=== PATIENT | female | born 1965 | race Caucasian/White ===

== ENCOUNTER → 2017-01-09 | Outpatient (CLI) | payer OTHER ==
[~2017-01-09] MED LIST: BCPILLS PO; CALC600T9 PO; CETI10TA10 PO; CITA40TA4 PO; COLE1TAB5 PO; DICY20TA10 PO; DIPHENOXYLATE-ATROP SL; DOCU-94 PO; HYDR2TAB48 PO; HYOS0.1255 PO; LPT/20 PO; METF500T5 PO; MULT-506 PO; OMEG10007 PO; OXYC-57 PO; PNT500 PO; SENN1TAB77 PO; URSO300C4 PO; VITACAP37 PO
[2017-01-09 13:51] LABS: ESTIMATED AVERAGE GLUCOSE 140 mg/dl; HA1C FLAG Normal (Normal)
[2017-01-09 14:41] LABS: ALT/SGPT 55 U/L (12-78); AST/SGOT 96 U/L (15-37); BLOOD UREA NITROGEN 11 mg/dl (7-18); BUN/CREATININE RATIO 14.2 (10-20); CALCIUM 9.1 mg/dl (8.5-10.1); CARBON DIOXIDE 26 mmol/L (21-32); CHLORIDE 106 mmol/L (98-107); CREATININE 0.76 mg/dl (0.60-1.20); GLUCOSE 94 mg/dl (70-99); POTASSIUM 3.7 mmol/L (3.5-5.1); SODIUM 140 mmol/L (136-145); TRIGLYCERIDES 294 mg/dl (0-150); VERY LOW DENSITY LIPOPROT CALC 59 mg/dl
[2017-01-09 14:43] LABS: ALB/GLOB RATIO 0.9 (0.9-2); ALKALINE PHOSPHATASE 80 U/L (45-117); CHOLESTEROL 280 mg/dl (0-200); CHOLESTEROL/HDL RATIO 6.4; HDL CHOLESTEROL 44 mg/dl; LDL CHOLESTEROL CALCULATED 177 mg/dl
== END | disposition home or self-care (01) ==
LOC: C.LAB 12:29
PROVIDERS: ATTEND Internal Medicine
DX: K76.0 Fatty (change of) liver, not elsewhere classified (principal)

== ENCOUNTER → 2017-01-26 | Outpatient (CLI) | payer OTHER ==
[2017-01-26 17:37] LABS: HEMATOCRIT 40.1 % (37-47)
== END | disposition home or self-care (01) ==
LOC: C.LAB1850 16:27
PROVIDERS: ATTEND Registered Nurse
DX: K62.5 Hemorrhage of anus and rectum (principal); K64.8 Other hemorrhoids

== ENCOUNTER → 2017-04-12 | Outpatient (CLI) | payer OTHER ==
--- NOTE | 2017-04-12 07:55 | DIAGNOSTIC IMAGING REPORT ---
ABDOMINAL ULTRASOUND, RIGHT UPPER QUADRANT HISTORY: Follow-up PANCREATIC LESION. COMPARISON: Abdominal ultrasound 04/10/2016. FINDINGS: Pancreas: An 8 mm cystic lesion within the pancreatic neck is not significant changed. Liver: Hepatomegaly demonstrating fatty change. Gallbladder: The gallbladder is surgically absent. CBD: 7 mm, unchanged Right kidney: No hydronephrosis. IMPRESSION: No significant change compared to the prior study. Stable 8 mm cystic lesion within the pancreatic neck is again noted. Electronically signed by: Dakotah Malagon M.D. 04/12/2017 7:54 AM Dictated Date/Time: 04/12/2017 7:52 AM
== END | disposition home or self-care (01) ==
LOC: C.ULTR 06:38
PROVIDERS: ATTEND Internal Medicine
DX: K86.9 Disease of pancreas, unspecified (principal)

== ENCOUNTER → 2017-06-05 | Outpatient (CLI) | payer OTHER ==
[2017-06-05 12:37] LABS: ALT/SGPT 53 U/L (12-78); AST/SGOT 119 U/L (15-37); BLOOD UREA NITROGEN 11 mg/dl (7-18); BUN/CREATININE RATIO 15.6 (10-20); CALCIUM 8.8 mg/dl (8.5-10.1); CARBON DIOXIDE 24 mmol/L (21-32); CHLORIDE 106 mmol/L (98-107); CHOLESTEROL 194 mg/dl (0-200); GLUCOSE 113 mg/dl (70-99); POTASSIUM 4.1 mmol/L (3.5-5.1); SODIUM 140 mmol/L (136-145); TRIGLYCERIDES 234 mg/dl (0-150); VERY LOW DENSITY LIPOPROT CALC 47 mg/dl
[2017-06-05 12:39] LABS: ALB/GLOB RATIO 0.9 (0.9-2); ALKALINE PHOSPHATASE 106 U/L (45-117); CHOLESTEROL/HDL RATIO 4.7; HDL CHOLESTEROL 41 mg/dl; LDL CHOLESTEROL CALCULATED 106 mg/dl
[2017-06-05 12:44] LABS: ESTIMATED AVERAGE GLUCOSE 157 mg/dl; HA1C FLAG Normal (Normal)
== END | disposition home or self-care (01) ==
LOC: C.LAB 10:58
PROVIDERS: ATTEND Internal Medicine
DX: E78.5 Hyperlipidemia, unspecified (principal); G47.33 Obstructive sleep apnea (adult) (pediatric); E11.9 Type 2 diabetes mellitus without complications; R79.89 Other specified abnormal findings of blood chemistry; K76.0 Fatty (change of) liver, not elsewhere classified; I10 Essential (primary) hypertension

== ENCOUNTER 2017-06-12 19:11 | Emergency (ER) | payer OTHER ==
[~2017-06-12] VITALS: Ht 154.9 cm; Wt 103.6 kg
[~2017-06-12 19:11] MED LIST changes: -DOCU-94 PO; -LPT/20 PO; -METF500T5 PO; -OXYC-57 PO; -SENN1TAB77 PO
[2017-06-12 19:26] VITALS: TEMP 37.6; Ht 154.9 cm; Wt 103.6 kg
[2017-06-12] MEDS ORDERED: SODIUM CHLORIDE 0.9% 1000ML 1,000 ML IV STA (20:10)
[2017-06-12] MEDS ORDERED: HYDROmorphone INJ 1 MG/ML SYR IV STA (20:10)
[2017-06-12] MEDS ORDERED: METOCLOPRAMIDE HCL INJ 5 MG/ML 2 ML VIAL IV STA (20:10)
[2017-06-12] MEDS ORDERED: ANUSOL SUPP 1 EA PR STA (20:13)
[2017-06-12] MEDS ORDERED: HYDROCORTISONE HC 2.5% CRM 30GM TUBE EXT ONE (20:15)
--- NOTE | 2017-06-12 20:23 | EMERGENCY ROOM VISIT NOTE ---
History Report prepared by Rod: John Robison Under the Supervision of: Dr. Jose L Perez M.D. First contact with patient: 19:59 Chief Complaint: OTHER COMPLAINT Stated Complaint: ANAL,VAGINAL BLEEDING,FEVER History of Present Illness The patient is a 51 year old female who presents to the Emergency Room with complaints of rectal pain that began this afternoon 5 hours ago. She rates her pain a 10/10 in severity. The patient has a history of bleeding internal hemorrhoids. This afternoon, she was at the [facility] seeing the colorectal surgeon to receive a banding procedure. She states that the procedure went well and she was discharged well. After she got home, she began having increased rectal, vaginal, and suprapubic tenderness. She is having urinary urgency without much production. She states that she has a fever of 100 F, but her temperature in triage was 99F. Source of History: patient Onset: this afternoon Symptom Intensity: 10/10 Quality: sharp Timing: constant Associated Symptoms: + abdominal pain (suprapubic), + urinary symptoms ( Urgency without much production), No fevers Note: She is having vaginal pain as well. Review of Systems See HPI for pertinent positives & negatives. A total of 10 systems reviewed and were otherwise negative. Past Medical & Surgical Medical Problems: (1) ACUTE PANCREATITIS (2) Cholecystectomy (3) Endoscopic retrograde cholangiopancreatography (4) IRRITABLE BOWEL SYNDROME Family History Cancer Diabetes mellitus Gallbladder disease Heart disease Hypertension Kidney stones Social History Smoking Status: Never Smoker Alcohol Use: none Drug Use: none Marital Status: Housing Status: lives with family Occupation Status: employed Current/Historical Medications Scheduled Atorvastatin (Atorvastatin Calcium), 20 MG PO DAILY Control Pills ( Control Pills), 1 TAB PO QPM Calcium Carbonate-Vitamin D (Calcium + D), 1 TAB PO BID Cetirizine Hcl (Zyrtec), 10 MG PO QAM Citalopram (Citalopram Hydrobromide), 80 MG PO QAM Colestipol Hcl (Colestipol Hcl), 2 TAB PO QAM Dicyclomine Hcl (Dicyclomine Hcl), 20 MG PO QID Docusate Sodium (Colace), 1 CAP PO BID Metformin Hcl Er (Glucophage Er), 1,000 MG PO QPM Multivitamin (Multivitamin), 1 TABLET PO QAM Sennosides (Senokot), 8.6 MG PO HS Vitamin E (E-400), 1 CAP PO QAM Scheduled PRN Hydromorphone Hcl (Dilaudid), 1 TAB PO DAILY PRN for ABDOMINAL PAIN Hyoscyamine Sulfate (Levsin), 0.125 MG PO DAILY PRN for ABDOMINAL PAIN Oxycodone/Acetaminophen 5MG/325MG (Percocet 5MG/325MG), 1-2 TAB PO Q4H PRN for Pain Allergies Coded Allergies: Latex (Unverified Allergy, Severe, rash, 06/12/17) Ondansetron (Unverified Allergy, Unknown, nausea, 06/12/17) Penicillins (Verified Allergy, Unknown, HIVES, 06/12/17) Physical Exam Vital Signs Date Time Temp Pulse Resp B/P (MAP) Pulse Ox O2 Delivery O2 Flow Rate FiO2 06/12/17 23:22 97 18 155/96 95 06/12/17 22:16 89 18 147/87 94 Room Air 06/12/17 19:26 37.6 101 16 193/110 97 Room Air Physical Exam GENERAL: Patient is a healthy-appearing well-nourished female HEAD: Normocephalic atraumatic EYES: Ocular movements intact pupils equal and react to light OROPHARYNX mucous membranes are moist no exudates present no erythema or edema present NECK: Supple no nuchal rigidity CHEST: Good equal expansion LUNGS: Clear and equal to auscultation CARDIAC: Normal S1 and S2 ABDOMEN: Soft suprapubic tenderness no guarding BACK: No CVA tenderness RECTAL: Very large protruding external hemorrhoid. Extremely tender. EXTREMITIES: No pain upon palpation normal muscle strength in all groups no clubbing cyanosis or edema NEURO: Patient is following commands and answering questions appropriately. Alert and oriented x3 Cranial Nerves 2-12 grossly intact Medical Decision & Procedures ER Provider Diagnostic Interpretation: Radiology results as stated below per my review and radiologist interpretation: CT SCAN OF THE ABDOMEN AND PELVIS WITH IV CONTRAST CLINICAL HISTORY: Suprapubic pain. Rectal pain. Vaginal bleeding. Fever. COMPARISON STUDY: Abdominal CT dated 10/05/2014. TECHNIQUE: Following the IV administration of 93 cc of Optiray 320, CT scan of the abdomen and pelvis is performed from the lung bases to the proximal femora. Images are reviewed in the axial, sagittal, and coronal planes. IV contrast was administered without complication. A dose lowering technique was utilized adhering to the principles of ALARA. CT DOSE: 1202.72 mGy.cm FINDINGS: Lung bases: The heart is normal in size and without pericardial effusion. The lung bases are clear. Liver: The contrast-enhanced liver is enlarged, measuring 19.1 cm in length. The liver demonstrates diffusely diminished attenuation consistent with hepatic steatosis. There is minimal central intrahepatic biliary ductal dilatation. There is mild pneumobilia. The hepatic veins and portal veins are patent. Gallbladder: Surgically absent noting clips in the gallbladder fossa. Spleen: Normal in size and attenuation. Pancreas: Unremarkable. Adrenal glands: Unremarkable. Kidneys: The contrast enhanced kidneys are normal in size and without hydronephrosis. The kidneys enhance symmetrically. A subcentimeter cortical hypodensity in the right kidney seen on image #199 likely represents a cyst but is too small for definitive characterization. Abdominal vasculature: The abdominal aorta is normal in course and caliber. Bowel: No bowel obstruction is seen. There is mild colonic diverticulosis without CT evidence of acute diverticulitis. Some mucosal fat deposition is noted throughout the right colon. The appendix is well-visualized and normal. Peritoneum: There is no intraperitoneal free air or abdominal ascites. There is a small fat-containing umbilical hernia. Lymphadenopathy: None. Pelvic viscera: The bladder, uterus, and adnexa are normal as visualized. Skeletal structures: No lytic or blastic lesions are seen. There are bilateral pars defects at L5. There is mild sclerotic degenerative change noted in the sacroiliac joints. IMPRESSION: 1. There are no acute infectious or inflammatory findings in the abdomen or pelvis. 2. Hepatomegaly and hepatic steatosis. 3. There is minimal pneumobilia, likely related previous sphincterotomy. Clinical correlation will be required. 4. Mild colonic diverticulosis without CT evidence of acute diverticulitis. 5. Additional findings as above. Electronically signed by: Logan Rushing M.D. 06/12/2017 10:15 PM Dictated Date/Time: 06/12/2017 10:09 PM Laboratory Results 06/12/17 20:44 Red Blood Count 4.17, Mean Corpuscular Volume 74.3, Mean Corpuscular Hemoglobin 21.8, Mean Corpuscular Hemoglobin Concent 29.4, Mean Platelet Volume 9.8, Neutrophils (%) (Auto) 77.0, Lymphocytes (%) (Auto) 19.2, Monocytes (%) (Auto) 2.3, Eosinophils (%) (Auto) 1.0, Basophils (%) (Auto) 0.2, Neutrophils # (Auto) 9.28, Lymphocytes # (Auto) 2.32, Monocytes # (Auto) 0.28, Eosinophils # (Auto) 0.12, Basophils # (Auto) 0.03 06/12/17 20:44 Test 06/12/17 20:44 06/12/17 22:55 White Blood Count 12.07 K/uL (4.8-10.8) Red Blood Count 4.17 M/uL (4.2-5.4) Hemoglobin 9.1 g/dL (12.0-16.0) Hematocrit 31.0 % (37-47) Mean Corpuscular Volume 74.3 fL (80-100) Mean Corpuscular Hemoglobin 21.8 pg (25-34) Mean Corpuscular Hemoglobin Concent 29.4 g/dl (32-36) Platelet Count 339 K/uL (130-400) Mean Platelet Volume 9.8 fL (7.4-10.4) Neutrophils (%) (Auto) 77.0 % Lymphocytes (%) (Auto) 19.2 % Monocytes (%) (Auto) 2.3 % Eosinophils (%) (Auto) 1.0 % Basophils (%) (Auto) 0.2 % Neutrophils # (Auto) 9.28 K/uL (1.4-6.5) Lymphocytes # (Auto) 2.32 K/uL (1.2-3.4) Monocytes # (Auto) 0.28 K/uL (0.11-0.59) Eosinophils # (Auto) 0.12 K/uL (0-0.5) Basophils # (Auto) 0.03 K/uL (0-0.2) RDW Standard Deviation 48.3 fL (36.4-46.3) RDW Coefficient of Variation 17.9 % (11.5-14.5) Immature Granulocyte % (Auto) 0.3 % Immature Granulocyte # (Auto) 0.04 K/uL (0.00-0.02) Polychromasia 1+ Anisocytosis PRESENT Anion Gap 12.0 mmol/L (3-11) Est Creatinine Clear Calc Drug Dose 101.8 ml/min Estimated GFR () 110.3 Estimated GFR (Non- 95.1 BUN/Creatinine Ratio 12.7 (10-20) Calcium Level 9.2 mg/dl (8.5-10.1) Total Bilirubin 0.4 mg/dl (0.2-1) Direct Bilirubin 0.1 mg/dl (0-0.2) Aspartate Amino Transf (AST/SGOT) 65 U/L (15-37) Alanine Aminotransferase (ALT/SGPT) 34 U/L (12-78) Alkaline Phosphatase 105 U/L (45-117) Total Protein 7.9 gm/dl (6.4-8.2) Albumin 3.6 gm/dl (3.4-5.0) Lipase 194 U/L (73-393) Urine Color YELLOW Urine Appearance CLEAR (CLEAR) Urine pH 5.0 (4.5-7.5) Urine Specific [place] > 1.045 (1.000-1.030) Urine Protein NEG (NEG) Urine Glucose (UA) NEG (NEG) Urine Ketones NEG (NEG) Urine Occult Blood TRACE (NEG) Urine Nitrite NEG (NEG) Urine Bilirubin NEG (NEG) Urine Urobilinogen NEG (NEG) Urine Leukocyte Esterase NEG (NEG) Urine WBC (Auto) 5-10 /hpf (0-5) Urine RBC (Auto) 0-4 /hpf (0-4) Urine Hyaline Casts (Auto) 0 /lpf (0-5) Urine Epithelial Cells (Auto) 10-20 /lpf (0-5) Urine Bacteria (Auto) NEG (NEG) Labs reviewed by ED physician. Medications Administered Medications (Trade) Dose Ordered Sig/Jens Route Start Time Stop Time Status Last Admin Dose Admin Sodium Chloride 1,000 ml @ 999 mls/hr Q1H1M STAT IV 06/12/17 20:10 06/12/17 21:10 DC 06/12/17 21:06 999 MLS/HR Hydromorphone HCl (Dilaudid Inj) 1 mg NOW STAT IV 06/12/17 20:10 06/12/17 20:13 DC 06/12/17 21:06 1 MG Metoclopramide HCl (Reglan Inj) 10 mg NOW STAT IV 06/12/17 20:10 06/12/17 20:13 DC 06/12/17 21:06 10 MG Hydrocortisone (Proctozone Hc 2.5% Crm) 1 appln NOW ONCE EXT 06/12/17 20:15 06/12/17 20:16 DC 06/12/17 21:10 1 APPLN ED Course 1958: Past medical records reviewed. The patient was evaluated in room C12B. A complete history and physical examination was performed. 2009: Ordered Reglan Inj 10 mg IV, Dilaudid Inj 1 mg IV, Sodium Chloride 1000 ml @ 999 mls/hr IV 2013: Anusol Supp [address] 2015: Ordered Hydrocortisone 1 appln EXT 2330: Upon reexamination the patient is resting. I discussed results and treatment plan with the patient. She verbalizes agreement and understanding. The patient is ready for discharge. Medical Decision Differential diagnosis: Etiologies such as appendicitis, diverticulitis, PUD, biliary pathology, UTI, pancreatitis, obstruction, mesenteric ischemia, aortic pathology, infections, inflammatory bowel disease, renal colic, as well as others were entertained. This is a 51-year-old female who presents emergency department complaining of rectal pain after having hemorrhoids banded. Upon arrival to the emergency department the patient is uncomfortable and cannot sit down. She does have a slight elevation in her white blood count cell count however has no evidence of acute process in her abdomen or pelvis. In addition her urine also appears to be clean. Patient was given Dilaudid as well as Reglan for her pain. Repeat examination revealed improvement the patient's symptoms. The patient also had Anusol placed on her hemorrhoid with much improvement in her symptoms. The patient is much more comfortable this point. I did review the fact that the patient is anemic compared to her previous hemoglobins however the patient states she stopped bleeding 2 days ago and is no longer bleeding. Based on these findings I feel the patient can be safely discharged home however I encouraged her to return if she develops weakness or severe bleeding. Patient and were in agreement with the treatment plan. Medication Reconcilliation Current Medication List: was personally reviewed by me Blood Pressure Screening Patient's blood pressure: Elevated blood pressure Blood pressure disposition: Referred to PCP Impression Primary Impression: Hemorrhoid Scribe Attestation The scribe's documentation has been prepared under my direction and personally reviewed by me in its entirety. I confirm that the note above accurately reflects all work, treatment, procedures, and medical decision making performed by me. Departure Information Dispostion Home / Self-Care Prescriptions Docusate Sodium (COLACE) 100 Mg Cap 1 CAP PO BID for 15 Days, #30 CAP Prov: Jose L Perez MD 06/12/17 Sennosides (SENOKOT) 8.6 Mg Tab 8.6 MG PO HS for 10 Days, #10 TAB Prov: Jose L Perez MD 06/12/17 Oxycodone/Acetaminophen 5MG/325MG (PERCOCET 5MG/325MG) Tab 1-2 TAB PO Q4H Y for Pain, #14 TAB Prov: Jose L Perez MD 06/12/17 Referrals Best Aguirre M.D. (PCP) Forms HOME CARE DOCUMENTATION FORM, IMPORTANT VISIT INFORMATION, WORK / SCHOOL INSTRUCTIONS Patient Instructions Diet Clear Liquid Dc, Hemorrhoid Surg Dc, My [employer] Additional Instructions Apply annusol Follow up with Dr Comer You were found to have an elevated blood pressure today (>120 sytolic or >90 diastolic). Per medicare guidelines, you need to follow up with this blood pressure screening with your Primary Care Physician (PCP). For a new PCP call [phone]. You received narcotic or benzodiazepene medication while in the emergency room today. This is an addictive medication that may cause drowziness as well as constipation. Do not drive, operate heavy machinery, or drink alcohol under the influence of this medication. Take 600 mg Ibuprofen every 6 hours Take Percocet for breakthrough pain You have been examined and treated today on an emergency basis only. This is not a substitute for, or an effort to provide, complete comprehensive medical care. It is impossible to recognize and treat all injuries or illnesses in a single emergency department visit. It is therefore important that you follow up closely with Dr Aguirre. Call as soon as possible for an appointment. Thank you for your time and consideration. I look forward to speaking with you again soon. Please don't hesitate to call us if you have any questions. Problem Qualifiers Primary Impression: Hemorrhoid Hemorrhoid type: unspecified Qualified Codes: K64.9 - Unspecified hemorrhoids
[2017-06-12] MEDS ORDERED: OPTIRAY 320 IV PRN (20:30)
[2017-06-12 21:08] LABS: BASO % 0.2 %; BASO ABS # 0.03 K/uL (0-0.2); IG% 0.3 %; LYMPH % 19.2 %; LYMPH ABS # 2.32 K/uL (1.2-3.4); MEAN CELL VOLUME 74.3 fL (80-100); MEAN CORPUSCULAR HEMOGLOBIN 21.8 pg (25-34); MEAN CORPUSCULAR HGB CONC 29.4 g/dl (32-36); MEAN PLATELET VOLUME 9.8 fL (7.4-10.4); MONO % 2.3 %; PLATELET COUNT 339 K/uL (130-400); RED BLOOD COUNT 4.17 M/uL (4.2-5.4); WHITE BLOOD COUNT 12.07 K/uL (4.8-10.8)
[2017-06-12 21:19] LABS: BUN/CREATININE RATIO 12.7 (10-20); CALCIUM 9.2 mg/dl (8.5-10.1); CREATININE 0.74 mg/dl (0.60-1.20); POTASSIUM 3.9 mmol/L (3.5-5.1)
[2017-06-12 21:42] LABS: ANISOCYTOSIS PRESENT; COMPLETE YES; POLYCHROMASIA 1+
[2017-06-12] MEDS ORDERED: METF500T5 PO (22:01)
[2017-06-12] MEDS ORDERED: LPT/20 PO (22:01)
--- NOTE | 2017-06-12 22:17 | DIAGNOSTIC IMAGING REPORT ---
CT SCAN OF THE ABDOMEN AND PELVIS WITH IV CONTRAST CLINICAL HISTORY: Suprapubic pain. Rectal pain. Vaginal bleeding. Fever. COMPARISON STUDY: Abdominal CT dated 10/05/2014. TECHNIQUE: Following the IV administration of 93 cc of Optiray 320, CT scan of the abdomen and pelvis is performed from the lung bases to the proximal femora. Images are reviewed in the axial, sagittal, and coronal planes. IV contrast was administered without complication. A dose lowering technique was utilized adhering to the principles of ALARA. CT DOSE: 1202.72 mGy.cm FINDINGS: Lung bases: The heart is normal in size and without pericardial effusion. The lung bases are clear. Liver: The contrast-enhanced liver is enlarged, measuring 19.1 cm in length. The liver demonstrates diffusely diminished attenuation consistent with hepatic steatosis. There is minimal central intrahepatic biliary ductal dilatation. There is mild pneumobilia. The hepatic veins and portal veins are patent. Gallbladder: Surgically absent noting clips in the gallbladder fossa. Spleen: Normal in size and attenuation. Pancreas: Unremarkable. Adrenal glands: Unremarkable. Kidneys: The contrast enhanced kidneys are normal in size and without hydronephrosis. The kidneys enhance symmetrically. A subcentimeter cortical hypodensity in the right kidney seen on image #199 likely represents a cyst but is too small for definitive characterization. Abdominal vasculature: The abdominal aorta is normal in course and caliber. Bowel: No bowel obstruction is seen. There is mild colonic diverticulosis without CT evidence of acute diverticulitis. Some mucosal fat deposition is noted throughout the right colon. The appendix is well-visualized and normal. Peritoneum: There is no intraperitoneal free air or abdominal ascites. There is a small fat-containing umbilical hernia. Lymphadenopathy: None. Pelvic viscera: The bladder, uterus, and adnexa are normal as visualized. Skeletal structures: No lytic or blastic lesions are seen. There are bilateral pars defects at L5. There is mild sclerotic degenerative change noted in the sacroiliac joints. IMPRESSION: 1. There are no acute infectious or inflammatory findings in the abdomen or pelvis. 2. Hepatomegaly and hepatic steatosis. 3. There is minimal pneumobilia, likely related previous sphincterotomy. Clinical correlation will be required. 4. Mild colonic diverticulosis without CT evidence of acute diverticulitis. 5. Additional findings as above. Electronically signed by: Logan Rushing M.D. 06/12/2017 10:15 PM Dictated Date/Time: 06/12/2017 10:09 PM
[2017-06-12] MEDS ORDERED: OXYC-57 PO (23:08)
[2017-06-12] MEDS ORDERED: DOCU-94 PO (23:08)
[2017-06-12] MEDS ORDERED: SENN1TAB77 PO (23:08)
[2017-06-12 23:22] VITALS: BP 155/96; PULSE 97; O2SAT 95
[2017-06-13 00:26] LABS: URINE APPEARANCE CLEAR (CLEAR); URINE BILIRUBIN NEG (NEG); URINE COLOR YELLOW; URINE NITRITE NEG (NEG); URINE SPECIFIC GRAVITY > 1.045 (1.000-1.030); UROBILINOGEN NEG (NEG)
[2017-06-13 00:30] LABS: MANUAL MICROSCOPIC REQUIRED? NO; REVIEW REQ? NO
== END 2017-06-12 23:14 | disposition home or self-care (01) ==
LOC: C.EDB 19:12 → C.EDC 23:14
DX: K64.9 Unspecified hemorrhoids (principal); K86.1 Other chronic pancreatitis; K58.9 Irritable bowel syndrome, unspecified; Z90.49 Acquired absence of other specified parts of digestive tract; Z79.84 Long term (current) use of oral hypoglycemic drugs; Z79.899 Other long term (current) drug therapy; Z88.0 Allergy status to penicillin; Z88.8 Allergy status to other drugs, medicaments and biological substances; Z91.040 Latex allergy status; Z80.9 Family history of malignant neoplasm, unspecified; Z83.3 Family history of diabetes mellitus; Z83.79 Family history of other diseases of the digestive system; Z82.49 Family history of ischemic heart disease and other diseases of the circulatory system; Z84.1 Family history of disorders of kidney and ureter

== ENCOUNTER → 2017-10-08 | Outpatient (CLI) | payer OTHER ==
[~2017-10-08] MED LIST changes: -DIPHENOXYLATE-ATROP SL; +LPT20 PO; +METF500T5 PO; -OMEG10007 PO; +OXYC-57 PO; -PNT500 PO; -URSO300C4 PO
[2017-10-08 09:49] LABS: HEMATOCRIT 30.1 % (37-47); HEMOGLOBIN 8.8 g/dL (12.0-16.0); MEAN CELL VOLUME 73.8 fL (80-100); MEAN CORPUSCULAR HEMOGLOBIN 21.6 pg (25-34); MEAN CORPUSCULAR HGB CONC 29.2 g/dl (32-36); MEAN PLATELET VOLUME 10.1 fL (7.4-10.4); PLATELET COUNT 302 K/uL (130-400); RED CELL DISTRIBUTION WIDTH CV 19.3 % (11.5-14.5); RED CELL DISTRIBUTION WIDTH SD 51.8 fL (36.4-46.3); WHITE BLOOD COUNT 11.28 K/uL (4.8-10.8)
[2017-10-08 09:55] LABS: ALBUMIN 3.4 gm/dl (3.4-5.0); ALT/SGPT 26 U/L (12-78); BLOOD UREA NITROGEN 12 mg/dl (7-18); CARBON DIOXIDE 23 mmol/L (21-32); CHOLESTEROL 162 mg/dl (0-200); CREATININE 0.78 mg/dl (0.60-1.20); GLUCOSE 140 mg/dl (70-99); POTASSIUM 3.8 mmol/L (3.5-5.1); SODIUM 139 mmol/L (136-145)
[2017-10-08 09:59] LABS: HEMOGLOBIN A1C 6.7 % (4.5-5.6)
[2017-10-08 10:06] LABS: ALKALINE PHOSPHATASE 94 U/L (45-117); AST/SGOT 34 U/L (15-37); LDL CHOLESTEROL CALCULATED 77 mg/dl; TOTAL PROTEIN 7.6 gm/dl (6.4-8.2)
[2017-10-08 10:20] LABS: BASO % 0.2 %; BASO ABS # 0.02 K/uL (0-0.2); EOS % 2.2 %; EOS ABS # 0.25 K/uL (0-0.5); IG# 0.04 K/uL (0.00-0.02); LYMPH % 27.4 %; LYMPH ABS # 3.09 K/uL (1.2-3.4); MONO % 3.9 %; MONO ABS # 0.44 K/uL (0.11-0.59); NEUT % 65.9 %; NEUT ABS # 7.44 K/uL (1.4-6.5)
== END | disposition home or self-care (01) ==
LOC: C.LAB 08:32
PROVIDERS: ATTEND Internal Medicine
DX: E78.5 Hyperlipidemia, unspecified (principal); G47.33 Obstructive sleep apnea (adult) (pediatric); K76.0 Fatty (change of) liver, not elsewhere classified; R79.89 Other specified abnormal findings of blood chemistry; E11.9 Type 2 diabetes mellitus without complications; Z68.41 Body mass index [BMI] 40.0-44.9, adult; I10 Essential (primary) hypertension; R03.0 Elevated blood-pressure reading, without diagnosis of hypertension

== ENCOUNTER 2017-10-24 05:20 | Emergency (ER) | payer OTHER ==
[~2017-10-24] VITALS: Ht 157.5 cm; Wt 103.0 kg
[2017-10-24 05:25] VITALS: Ht 157.5 cm; Wt 103.0 kg
[2017-10-24] MEDS ORDERED: PROCHLORPERAZINE 5 MG/ML 2 ML VIAL IV STA (05:31)
[2017-10-24] MEDS ORDERED: SODIUM CHLORIDE 0.9% 1000ML 1,000 ML IV STA (05:31)
[2017-10-24] MEDS ORDERED: DiphenhydrAMINE HCL 50 MG/ML VIAL IV STA (05:31)
[2017-10-24] MEDS ORDERED: MoRPHine SULFATE 4 MG/ML 1 ML CARP\\VIAL IV STA (05:45)
--- NOTE | 2017-10-24 05:56 | EMERGENCY ROOM VISIT NOTE ---
History Report prepared by Rod: Maureen Cash Under the Supervision of: Dr. Kristen Lind M.D. First contact with patient: 05:31 Chief Complaint: ABDOMINAL PAIN Stated Complaint: ABDOMINAL PAIN,BACK PAIN,VOMITING History of Present Illness The patient is a 51 year old female who presents to the Emergency Room with complaints of sudden abdominal pain starting prior to arrival. The patient states that it is a stabbing pain that awoke her from her sleep. She reports that it radiates into her back. She states that she has pain medication that she takes at home, but if it doesn't work, then she comes to the ED for pain control. The patient complains of nausea, vomiting, constipation, and a fever. She notes that the pain is worse with a deep breath. She reports that it feels like past episodes of this pain except her abdomen is hard and she usually doesn 't vomit this much. She notes that she is on an iron deficiency supplement. Source of History: patient Onset: prior to arrival Position: abdomen Quality: sharp Timing: other (sudden) Modifying Factors (Worsening): breathing Associated Symptoms: + fevers, + nausea, + vomiting, + back pain Note: The patient complains of constipation. Review of Systems See HPI for pertinent positives & negatives. A total of 10 systems reviewed and were otherwise negative. Past Medical & Surgical Medical Problems: (1) ACUTE PANCREATITIS (2) Cholecystectomy (3) Endoscopic retrograde cholangiopancreatography (4) IRRITABLE BOWEL SYNDROME Family History Cancer Diabetes mellitus Gallbladder disease Heart disease Hypertension Kidney stones Social History Smoking Status: Never Smoker Alcohol Use: none Drug Use: none Marital Status: Housing Status: lives with family Occupation Status: employed Current/Historical Medications Scheduled Ascorbic Acid (Vitamin C), 250 MG PO DAILY Atorvastatin (Lipitor), 20 MG PO DAILY Calcium Carbonate-Vitamin D (Calcium + D), 1 TAB PO BID Cetirizine Hcl (Zyrtec), 10 MG PO QAM Cholestyramine (Cholestyramine), 1 DOSE PO BID Citalopram (Citalopram Hydrobromide), 40 MG PO QAM Docusate Sodium (Colace), 1 CAP PO BID Fish Oil (Leeds-3), 2 CAP PO DAILY Iron Combinations (Iron Complex), 1 CAP PO DAILY Metformin Hcl Er (Glucophage Er), 1,000 MG PO QPM Multivitamin (Multivitamin), 1 TABLET PO QAM Norethin Acet & Estrad-Fe (09/29), 1 TAB PO DAILY Vitamin E (E-400), 1 CAP PO BID Scheduled PRN Colestipol Hcl (Colestipol Hcl), 1-2 TABS PO DAILY PRN for UNDECIDED Diclofenac Sodium (Topical) (Voltaren 1% Top Gel), 1 APPLN TOP BID PRN for Pain Hyoscyamine Sulfate (Levsin), 0.125 MG PO DAILY PRN for ABDOMINAL PAIN Oxycodone/Acetaminophen 5MG/325MG (Percocet 5MG/325MG), 1-2 TAB PO Q4H PRN for Pain Senna (Senokot), 1 TAB PO DAILY PRN for Constipation Allergies Coded Allergies: Latex (Unverified Allergy, Severe, rash, 10/24/17) Ondansetron (Unverified Allergy, Unknown, nausea, 10/24/17) Penicillins (Verified Allergy, Unknown, HIVES, 10/24/17) Physical Exam Vital Signs Date Time Temp Pulse Resp B/P (MAP) Pulse Ox O2 Delivery O2 Flow Rate FiO2 10/24/17 09:07 105 24 141/75 92 10/24/17 09:01 92 Room Air 10/24/17 08:37 36.9 108 24 140/75 96 Nasal Cannula 2.0 10/24/17 06:54 88 Room Air 10/24/17 06:54 92 Nasal Cannula 2.0 10/24/17 06:51 120 24 129/58 91 Room Air 10/24/17 06:23 120 10/24/17 05:25 37.7 118 20 178/80 98 Room Air Physical Exam Vital signs reviewed. General: Chronically ill-appearing, some discomfort, in no significant distress. HEENT: No scleral icterus, PERRLA, neck supple. Atraumatic. Cardiovascular: Regular rate and rhythm, no extra sounds. Pulmonary: Clear to auscultation bilaterally, normal work of breathing. Abdomen: Obese. Soft, tender to palpation of RUQ, no rebound, no guarding, nondistended, positive bowel sounds. Musculoskeletal: Atraumatic, no peripheral edema. Neurologic: Patient awake alert and oriented x 3 Skin: Warm, dry, no rash Medical Decision & Procedures ER Provider Diagnostic Interpretation: ABDOMEN 2 VIEW: The results were interpreted by me. Non obstructive bowel gas pattern. Formed stool seen scattered about the colon. No free air. Surgical clips appreciated. Laboratory Results 10/24/17 05:56 Red Blood Count 4.12, Mean Corpuscular Volume 74.3, Mean Corpuscular Hemoglobin 22.1, Mean Corpuscular Hemoglobin Concent 29.7, Mean Platelet Volume 9.0, Neutrophils (%) (Auto) 86.0, Lymphocytes (%) (Auto) 10.9, Monocytes (%) (Auto) 2.0, Eosinophils (%) (Auto) 0.8, Basophils (%) (Auto) 0.1, Neutrophils # (Auto) 8.25, Lymphocytes # (Auto) 1.05, Monocytes # (Auto) 0.19, Eosinophils # (Auto) 0.08, Basophils # (Auto) 0.01 10/24/17 05:56 Test 10/24/17 05:56 10/24/17 07:25 White Blood Count 9.60 K/uL (4.8-10.8) Red Blood Count 4.12 M/uL (4.2-5.4) Hemoglobin 9.1 g/dL (12.0-16.0) Hematocrit 30.6 % (37-47) Mean Corpuscular Volume 74.3 fL (80-100) Mean Corpuscular Hemoglobin 22.1 pg (25-34) Mean Corpuscular Hemoglobin Concent 29.7 g/dl (32-36) Platelet Count 246 K/uL (130-400) Mean Platelet Volume 9.0 fL (7.4-10.4) Neutrophils (%) (Auto) 86.0 % Lymphocytes (%) (Auto) 10.9 % Monocytes (%) (Auto) 2.0 % Eosinophils (%) (Auto) 0.8 % Basophils (%) (Auto) 0.1 % Neutrophils # (Auto) 8.25 K/uL (1.4-6.5) Lymphocytes # (Auto) 1.05 K/uL (1.2-3.4) Monocytes # (Auto) 0.19 K/uL (0.11-0.59) Eosinophils # (Auto) 0.08 K/uL (0-0.5) Basophils # (Auto) 0.01 K/uL (0-0.2) RDW Standard Deviation 53.9 fL (36.4-46.3) RDW Coefficient of Variation 19.8 % (11.5-14.5) Immature Granulocyte % (Auto) 0.2 % Immature Granulocyte # (Auto) 0.02 K/uL (0.00-0.02) Anion Gap 11.0 mmol/L (3-11) Est Creatinine Clear Calc Drug Dose 91.1 ml/min Estimated GFR () 94.6 Estimated GFR (Non- 81.6 BUN/Creatinine Ratio 13.5 (10-20) Calcium Level 8.5 mg/dl (8.5-10.1) Total Bilirubin 1.1 mg/dl (0.2-1) Direct Bilirubin 0.6 mg/dl (0-0.2) Aspartate Amino Transf (AST/SGOT) 278 U/L (15-37) Alanine Aminotransferase (ALT/SGPT) 92 U/L (12-78) Alkaline Phosphatase 183 U/L (45-117) Total Protein 7.7 gm/dl (6.4-8.2) Albumin 3.5 gm/dl (3.4-5.0) Lipase 207 U/L (73-393) Urine Color YELLOW Urine Appearance CLOUDY (CLEAR) Urine pH 5.0 (4.5-7.5) Urine Specific [place] 1.034 (1.000-1.030) Urine Protein NEG (NEG) Urine Glucose (UA) NEG (NEG) Urine Ketones 1+ (NEG) Urine Occult Blood NEG (NEG) Urine Nitrite NEG (NEG) Urine Bilirubin NEG (NEG) Urine Urobilinogen NEG (NEG) Urine Leukocyte Esterase NEG (NEG) Urine WBC (Auto) 1-5 /hpf (0-5) Urine RBC (Auto) 0-4 /hpf (0-4) Urine Hyaline Casts (Auto) 1-5 /lpf (0-5) Urine Epithelial Cells (Auto) 10-20 /lpf (0-5) Urine Bacteria (Auto) NEG (NEG) Laboratory results per my review. Medications Administered Medications (Trade) Dose Ordered Sig/Jens Route Start Time Stop Time Status Last Admin Dose Admin Sodium Chloride 1,000 ml @ 999 mls/hr Q1H1M STAT IV 10/24/17 05:31 10/24/17 06:31 DC 10/24/17 06:10 999 MLS/HR Prochlorperazine Edisylate (Compazine Inj) 10 mg NOW STAT IV 10/24/17 05:31 10/24/17 05:32 DC 10/24/17 06:10 10 MG Diphenhydramine HCl (Benadryl Inj) 25 mg NOW STAT IV 10/24/17 05:31 10/24/17 05:32 DC 10/24/17 06:11 25 MG Morphine Sulfate (MoRPHine SULFATE INJ) 4 mg NOW STAT IV 10/24/17 05:45 10/24/17 05:47 DC 10/24/17 06:10 4 MG ED Course 0531: Ordered Benadryl Inj 25 mg IV, Compazine Inj 10 mg IV, NSS 1000 ml @ 999 mls/hr IV. 0541: Past medical records reviewed. The patient was evaluated in room B3B. A complete history and physical examination was performed. 0545: Ordered Morphine Sulfate 4 mg IV. Medical Decision Differential diagnosis: Etiologies such as appendicitis, diverticulitis, PUD, biliary pathology, UTI, pancreatitis, obstruction, mesenteric ischemia, aortic pathology, infections, inflammatory bowel disease, renal colic, as well as others were entertained. This patient was evaluated and appeared to be in some discomfort. IV access was obtained and laboratory work was drawn. Patient was hydrated with normal saline solution, given IV Compazine, morphine and Benadryl. Laboratory work reveals slightly elevated LFTs above the patient's baseline. Ultrasound of right upper quadrant was performed and reveals no evidence of biliary obstruction. Patient is status post cholecystectomy. A CT scan of the abdomen and pelvis was performed and reveals no evidence of biliary obstruction, fluid collection, bowel obstruction or acute finding otherwise. Ultrasound of right upper quadrant was performed and is pending. Patient is status post cholecystectomy. On reevaluation, the patient was feeling improved. She was informed of the findings. Case was signed out to Dr. Perez at the change of shift pending disposition. Patient is aware of the plan and agrees. Medication Reconcilliation Current Medication List: was personally reviewed by me Blood Pressure Screening Patient's blood pressure: Elevated blood pressure Blood pressure disposition: Elevated BP felt to be situational Impression Primary Impression: Abdominal pain, acute, epigastric Additional Impression: Abdominal pain, chronic, epigastric Scribe Attestation The scribe's documentation has been prepared under my direction and personally reviewed by me in its entirety. I confirm that the note above accurately reflects all work, treatment, procedures, and medical decision making performed by me. Departure Information Referrals Best Aguirre M.D. (PCP) Patient Instructions My [facility] Problem Qualifiers
[2017-10-24 06:09] LABS: HEMATOCRIT 30.6 % (37-47); HEMOGLOBIN 9.1 g/dL (12.0-16.0); MEAN CELL VOLUME 74.3 fL (80-100); MEAN CORPUSCULAR HEMOGLOBIN 22.1 pg (25-34); MEAN CORPUSCULAR HGB CONC 29.7 g/dl (32-36); PLATELET COUNT 246 K/uL (130-400); RED CELL DISTRIBUTION WIDTH CV 19.8 % (11.5-14.5); RED CELL DISTRIBUTION WIDTH SD 53.9 fL (36.4-46.3)
[2017-10-24 06:27] LABS: ALBUMIN 3.5 gm/dl (3.4-5.0); CALCIUM 8.5 mg/dl (8.5-10.1); CREATININE 0.84 mg/dl (0.60-1.20); POTASSIUM 3.9 mmol/L (3.5-5.1)
[2017-10-24 06:29] LABS: TOTAL PROTEIN 7.7 gm/dl (6.4-8.2)
[2017-10-24] MEDS ORDERED: OPTIRAY 320 IV PRN (06:45)
[2017-10-24] MEDS ORDERED: CHOL4POW3 PO (06:59)
[2017-10-24] MEDS ORDERED: NORE1TAB3 PO (06:59)
[2017-10-24] MEDS ORDERED: DOCU-94 PO (06:59)
[2017-10-24 07:00] LABS: BASO % 0.1 %; BASO ABS # 0.01 K/uL (0-0.2); EOS % 0.8 %; EOS ABS # 0.08 K/uL (0-0.5); IG# 0.02 K/uL (0.00-0.02); LYMPH % 10.9 %; LYMPH ABS # 1.05 K/uL (1.2-3.4); MONO ABS # 0.19 K/uL (0.11-0.59); NEUT ABS # 8.25 K/uL (1.4-6.5)
[2017-10-24] MEDS ORDERED: OMEG10007 PO (07:01)
[2017-10-24] MEDS ORDERED: COLE1TAB5 PO (07:01)
[2017-10-24] MEDS ORDERED: IRON1CAP2 PO (07:02)
[2017-10-24] MEDS ORDERED: ASCO250T4 PO (07:04)
[2017-10-24] MEDS ORDERED: SENN-61 PO (07:05)
[2017-10-24] MEDS ORDERED: DICL1GEL12 TOP (07:05)
--- NOTE | 2017-10-24 07:16 | DIAGNOSTIC IMAGING REPORT ---
PA CHEST RADIOGRAPH AND UPRIGHT AND SUPINE AP RADIOGRAPHS OF THE ABDOMEN CLINICAL HISTORY: Vomiting. Upper abdominal pain. COMPARISON STUDY: Chest radiograph November 22, [address] of the abdomen and pelvis June 12, 2017. FINDINGS: Mild elevation of the right hemidiaphragm is noted. There is no pneumothorax or pleural effusion. There is no evidence for pulmonary edema. Cardiomediastinal silhouette is stable. There is no free air. There are cholecystectomy clips. The bowel gas pattern is normal. IMPRESSION: 1. No free air or evidence of bowel obstruction. 2. No acute cardiopulmonary findings. Electronically signed by: Enoc Carson M.D. 10/24/2017 7:15 AM Dictated Date/Time: 10/24/2017 7:14 AM
--- NOTE | 2017-10-24 07:24 | DIAGNOSTIC IMAGING REPORT ---
ABDOMEN AND PELVIS CT WITH IV CONTRAST CT DOSE: 1492.80 mGy.cm HISTORY: Acutely elevated LFTs with prior cholecystectomy elevated liver enzymes, s/p kaykay, impacted stone? TECHNIQUE: Multiaxial CT images of the abdomen and pelvis were performed following the use of intravenous contrast. A dose lowering technique was utilized adhering to the principles of ALARA. COMPARISON STUDY: CT abdomen and pelvis 06/12/2017. FINDINGS: Mild dependent subsegmental bibasilar atelectasis there is no pneumatosis or pneumoperitoneum identified. Imaged inferior cardiac chambers are unremarkable. Hepatomegaly with hepatic steatosis. Previously described pneumobilia is not identified on today's exam. Prior cholecystectomy. No intrahepatic biliary ductal dilation. Common bile duct is mildly dilated at 8 mm, likely secondary to postcholecystectomy state. No filling defects identified within the common bile duct. Pancreas, spleen and adrenal glands are within normal limits. The exam is mildly motion degraded. 6 mm low attenuating lesion of the anterior interpolar right kidney is too small to characterize however suggests renal cyst. No renal calculi or obstructive uropathy. Ureters and urinary bladder are unremarkable. Uterus and adnexa are again noted to be unremarkable. Ovoid calcification posterior to uterus on image 394 series 3 is again noted which is unchanged and nonspecific. Aorta is normal in course and caliber without aneurysm or dissection. No bowel obstruction or focal bowel wall thickening identified. Minimal colonic diverticulosis without CT evidence of acute diverticulitis. Normal appendix. Soft tissues are unremarkable. Bones appear intact. Remote bilateral pars defects at L5 without spondylolisthesis. Small posterior disc bulge is also noted at this interspace. IMPRESSION: 1. No acute intra-abdominal or intrapelvic abnormality identified. Normal appendix. 2. Prior cholecystectomy. Mild dilation of the common bile duct measuring 8 mm is likely secondary to reservoir effect from postcholecystectomy state. 3. Hepatomegaly with hepatic steatosis. 4. Minimal colonic diverticulosis without CT evidence of acute diverticulitis. 5. Remote bilateral pars defects at L5. Electronically signed by: Janes Geronimo M.D. 10/24/2017 7:22 AM Dictated Date/Time: 10/24/2017 7:15 AM
--- NOTE | 2017-10-24 08:13 | DIAGNOSTIC IMAGING REPORT ---
ABDOMINAL ULTRASOUND, RIGHT UPPER QUADRANT HISTORY: RUQ, ? biliary stone, s/p kaykay with elevated LFTs. COMPARISON: Right upper quadrant ultrasound April 12, [address] of the abdomen and pelvis performed earlier today. FINDINGS: Increased hepatic echogenicity is noted. No hepatic lesions are identified. Mild dilatation of the common bile duct, measuring 8 mm is noted. No common bile duct calculi are identified. The gallbladder is surgically absent. A 9 mm cystic lesion within the pancreatic neck is unchanged since exam of October 13, 2015. There is no pancreatic ductal dilatation. There is no right hydronephrosis. IMPRESSION: 1. Minimal dilatation of the common bile duct status post cholecystectomy. This is not significantly changed since previous exams. No common bile duct calculi identified by sonography. 2. Fatty liver. 3. No change in a 9 mm cystic pancreatic neck lesion. Electronically signed by: Enoc Carson M.D. 10/24/2017 8:12 AM Dictated Date/Time: 10/24/2017 7:54 AM
[2017-10-24 08:37] VITALS: TEMP 36.9
[2017-10-24 09:01] VITALS: O2SAT 92
[2017-10-24 09:07] VITALS: BP 141/75; PULSE 105; O2SAT 92
--- NOTE | 2017-10-24 09:13 | EMERGENCY ROOM VISIT NOTE ---
ED Visit Note Received patient in signout from Dr. Lind. History and physical verified by me. Patient is pain-free at this point. She is nontender on my examination. Patient is awaiting results of ultrasound as well as CAT scan. ABDOMINAL ULTRASOUND, RIGHT UPPER QUADRANT HISTORY: RUQ, ? biliary stone, s/p kaykay with elevated LFTs. COMPARISON: Right upper quadrant ultrasound April 12, [address] of the abdomen and pelvis performed earlier today. FINDINGS: Increased hepatic echogenicity is noted. No hepatic lesions are identified. Mild dilatation of the common bile duct, measuring 8 mm is noted. No common bile duct calculi are identified. The gallbladder is surgically absent. A 9 mm cystic lesion within the pancreatic neck is unchanged since exam of October 13, 2015. There is no pancreatic ductal dilatation. There is no right hydronephrosis. IMPRESSION: 1. Minimal dilatation of the common bile duct status post cholecystectomy. This is not significantly changed since previous exams. No common bile duct calculi identified by sonography. 2. Fatty liver. 3. No change in a 9 mm cystic pancreatic neck lesion. Electronically signed by: Enoc Carson M.D. 10/24/2017 8:12 AM Dictated Date/Time: 10/24/2017 7:54 AM The status of this report is Signed. Draft = Not yet reviewed or approved by Radiologist. Signed = Reviewed and approved by Radiologist. ABDOMINAL ULTRASOUND, RIGHT UPPER QUADRANT HISTORY: RUQ, ? biliary stone, s/p kaykay with elevated LFTs. COMPARISON: Right upper quadrant ultrasound April 12, [address] of the abdomen and pelvis performed earlier today. FINDINGS: Increased hepatic echogenicity is noted. No hepatic lesions are identified. Mild dilatation of the common bile duct, measuring 8 mm is noted. No common bile duct calculi are identified. The gallbladder is surgically absent. A 9 mm cystic lesion within the pancreatic neck is unchanged since exam of October 13, 2015. There is no pancreatic ductal dilatation. There is no right hydronephrosis. IMPRESSION: 1. Minimal dilatation of the common bile duct status post cholecystectomy. This is not significantly changed since previous exams. No common bile duct calculi identified by sonography. 2. Fatty liver. 3. No change in a 9 mm cystic pancreatic neck lesion. Electronically signed by: Enoc Carson M.D. 10/24/2017 8:12 AM Dictated Date/Time: 10/24/2017 7:54 AM The status of this report is Signed. Draft = Not yet reviewed or approved by Radiologist. Signed = Reviewed and approved by Radiologist. I had a lengthy discussion with this patient regarding her liver enzymes. The patient and her both note that she has had this epigastric pain many times in the past and she takes morphine at home for. She is also had elevations in her lipase and liver enzymes as well as the past. They both note that she has a scheduled follow-up with Dr. Comer. As she is pain-free at this point I feel she can be safely discharged home. Patient was in agreement with the treatment plan.
== END 2017-10-24 09:08 | disposition home or self-care (01) ==
LOC: C.EDB 05:22
DX: R10.11 Right upper quadrant pain (principal); R11.2 Nausea with vomiting, unspecified; K59.00 Constipation, unspecified; R50.9 Fever, unspecified; M54.9 Dorsalgia, unspecified; R79.89 Other specified abnormal findings of blood chemistry; R03.0 Elevated blood-pressure reading, without diagnosis of hypertension; K58.9 Irritable bowel syndrome, unspecified; Z90.49 Acquired absence of other specified parts of digestive tract; Z79.84 Long term (current) use of oral hypoglycemic drugs; Z91.040 Latex allergy status; Z88.8 Allergy status to other drugs, medicaments and biological substances; Z88.0 Allergy status to penicillin; Z83.3 Family history of diabetes mellitus; Z83.79 Family history of other diseases of the digestive system; Z82.49 Family history of ischemic heart disease and other diseases of the circulatory system; Z84.1 Family history of disorders of kidney and ureter

== ENCOUNTER 2017-12-14 09:53 | Emergency (ER) | payer OTHER ==
[~2017-12-14] VITALS: Ht 154.9 cm; Wt 99.0 kg
[~2017-12-14 09:53] MED LIST changes: +ATOR-22 PO; -BCPILLS PO; -CETI10TA10 PO; +CETI10TA84 PO; +CHOL4POW3 PO; -COLE1TAB5 PO; -DICY20TA10 PO; -HYDR2TAB48 PO; -HYOS0.1255 PO; +HYOS1TAB PO; +IRONCAP PO; -LPT20 PO; +NORE1TAB3 PO; -OXYC-57 PO; +VITA400C3 PO; -VITACAP37 PO
[2017-12-14 09:55] VITALS: TEMP 37; Ht 154.9 cm; Wt 99.0 kg
[2017-12-14] MEDS ORDERED: SODIUM CHLORIDE 0.9% 1000ML 1,000 ML IV STA (10:03)
[2017-12-14 10:32] LABS: HEMATOCRIT 31.2 % (37-47); HEMOGLOBIN 9.4 g/dL (12.0-16.0); MEAN CELL VOLUME 78.4 fL (80-100); MEAN CORPUSCULAR HEMOGLOBIN 23.6 pg (25-34); MEAN CORPUSCULAR HGB CONC 30.1 g/dl (32-36); WHITE BLOOD COUNT 7.02 K/uL (4.8-10.8)
[2017-12-14 10:33] LABS: BASO % 0.3 %; BASO ABS # 0.02 K/uL (0-0.2); EOS % 2.7 %; EOS ABS # 0.19 K/uL (0-0.5); LYMPH % 27.1 %; MONO % 4.4 %; MONO ABS # 0.31 K/uL (0.11-0.59); NEUT % 65.5 %; PLATELET COUNT 251 K/uL (130-400); RED CELL DISTRIBUTION WIDTH SD 55.1 fL (36.4-46.3)
[2017-12-14 10:50] LABS: ALBUMIN 3.5 gm/dl (3.4-5.0); ALT/SGPT 58 U/L (12-78); BLOOD UREA NITROGEN 8 mg/dl (7-18); CARBON DIOXIDE 19 mmol/L (21-32); CREATININE 0.95 mg/dl (0.60-1.20); GLUCOSE 156 mg/dl (70-99); LIPASE 246 U/L (73-393); POTASSIUM 3.5 mmol/L (3.5-5.1); SODIUM 137 mmol/L (136-145)
[2017-12-14 10:53] LABS: ALKALINE PHOSPHATASE 96 U/L (45-117); AST/SGOT 155 U/L (15-37); TOTAL PROTEIN 7.7 gm/dl (6.4-8.2)
--- NOTE | 2017-12-14 13:03 | DIAGNOSTIC IMAGING REPORT ---
PA CHEST RADIOGRAPH AND UPRIGHT AND SUPINE AP RADIOGRAPHS OF THE ABDOMEN CLINICAL HISTORY: abdominal pain s/p colonoscopy COMPARISON STUDY: CT of the abdomen and pelvis and chest radiograph and abdominal series October 24, 2017. FINDINGS: Lung volumes are at the lower limits of normal. Lungs are clear. Cardiac size is normal. Mediastinal contours are normal. There is no free air. There are cholecystectomy clips. The bowel gas pattern is normal. Pelvic calcifications reflect phleboliths. IMPRESSION: 1. No free air or evidence of bowel obstruction. 2. No acute cardiopulmonary findings. Electronically signed by: Enoc Carson M.D. 12/14/2017 1:02 PM Dictated Date/Time: 12/14/2017 1:01 PM
--- NOTE | 2017-12-14 13:13 | EMERGENCY ROOM VISIT NOTE ---
History Report prepared by Rod: Bacilio Angeles Under the Supervision of: Dr. Tai Parisi M.D. First contact with patient: 10:00 Chief Complaint: RECTAL BLEEDING Stated Complaint: BLEEDING HEMRHOIDS Nursing Triage Summary: Had a colonoscopy two days ago for anemia and "extreme hemmhroids". Rectal bleeding is increased since procedure. Pain in abdomen and bilateral hips. History of Present Illness The patient is a 51 year old female who presents to the Emergency Room with complaints of constant rectal bleeding beginning two days ago. She had a colonoscopy two days ago (with Dr. Rosen) due to anemia and was found to have hemorrhoids. She had bleeding prior to the procedure, but worsened significantly afterwards. The patient states "I am normally bleeding, but it got a lot worse after the colonoscopy". She also complains of fatigue, upper abdominal pain, and bilateral hip pain. She denies chest pain, SOB, or LOC. The patient had a test two days ago which was normal. She is scheduled to start her period today or tomorrow. She was diagnosed with Crohn's previously, but was told she does not have Crohn's earlier this year and has been weaning off the medications. Source of History: patient Onset: Two days ago Position: other (rectum) Quality: other (bleeding) Timing: constant Associated Symptoms: + abdominal pain (upper), + fatigue, No chest pain, No SOB Note: Additional symptoms: bilateral hip pain. Review of Systems See HPI for pertinent positives and negatives. A total of ten systems were reviewed and were otherwise negative. Past Medical & Surgical Medical Problems: (1) ACUTE PANCREATITIS (2) Cholecystectomy (3) Endoscopic retrograde cholangiopancreatography (4) IRRITABLE BOWEL SYNDROME Family History Cancer Diabetes mellitus Gallbladder disease Heart disease Hypertension Kidney stones Social History Smoking Status: Never Smoker Alcohol Use: none Drug Use: none Marital Status: Housing Status: lives with family Occupation Status: employed Current/Historical Medications Scheduled Atorvastatin (Lipitor), 20 MG PO QAM Calcium Carbonate-Vitamin D (Calcium + D), 1 TAB PO BID Cetirizine (Zyrtec), 10 MG PO QAM Cholestyramine (Cholestyramine), 1 DOSE PO QAM Citalopram (Citalopram Hydrobromide), 40 MG PO QAM Iron W/ B12-Vit C-Fa-Ifc (Ferrotrin), 1 CAP PO HS Metformin Hcl Er (Glucophage Er), 1,000 MG PO QPM Multivitamin (Multivitamin), 1 TABLET PO QAM Norethin Acet & Estrad-Fe (09/29), 1 TAB PO DAILY Vitamin E (Vitamin E 400 Iu), 400 INTER.UNIT PO QAM Scheduled PRN Hyoscyamine Sulfate (Levsin), 0.125 MG PO DIRECTED PRN for Pain Allergies Coded Allergies: Latex (Unverified Allergy, Severe, rash, 12/14/17) Ondansetron (Unverified Allergy, Unknown, nausea, 12/14/17) Penicillins (Verified Allergy, Unknown, HIVES, 12/14/17) Physical Exam Vital Signs Date Time Temp Pulse Resp B/P (MAP) Pulse Ox O2 Delivery O2 Flow Rate FiO2 12/14/17 13:30 87 18 139/80 96 12/14/17 11:50 91 18 144/97 97 Room Air 12/14/17 09:55 37.0 111 18 112/67 98 Room Air Physical Exam Physical Exam GENERAL: She is oriented to person, place, and time. She appears well- developed and well-nourished. She does not appear distressed. ____ HENT: Exam performed. Head: Normocephalic and atraumatic. Right Ear: External ear normal. No mastoid tenderness. Left Ear: External ear normal. No mastoid tenderness. Mouth/Throat: The oropharynx is clear and moist. No trismus in the jaw. No dental abscesses or uvula swelling. No oropharyngeal exudate or tonsillar abscesses. ____ EYES: Conjunctivae and EOM are normal. Pupils are equal, round, and reactive to light. Right eye exhibits no discharge. Left eye exhibits no discharge. No scleral icterus. ____ NECK: Normal range of motion. Neck supple. No JVD present. No spinous process tenderness present. No carotid bruit present. No rigidity. No tracheal deviation and normal range of motion present. No Brudzinski's sign and no Kernig 's sign noted. ____ CV: Normal rate, regular rhythm, normal heart sounds and intact distal pulses. There is no peripheral edema. Palpable radial pulses bue. ____ PULM/CHEST: Effort normal and breath sounds normal. No respiratory distress. No stridor. She has no wheezes. She has no rales. Chest Wall: She exhibits no tenderness. ____ ABD: The abdomen is soft. Bowel sounds are normal. She has no distension. No mass is present. There is no tenderness. There is no rebound, no guarding, no Pickard's sign and no tenderness at McBurney's point. Rovsig negative RECTAL: Hemoccult positive stool. No bright red blood per rectum. MUSC/SKEL: Normal range of motion. There is no peripheral edema, tenderness or deformity. LYMPH: No cervical adenopathy. ____ NEURO: She is alert and oriented to person, place, and time. She has normal strength. No cranial nerve deficit or sensory deficit. Coordination and gait normal. GCS eye subscore is 4. GCS verbal subscore is 5. GCS motor subscore is 6. Cerebellar tests wnl. ____ SKIN: Skin is warm and dry. She is not diaphoretic. ____ PSYCH: She has a normal mood and affect. Her behavior is normal. Judgment and thought content normal. ____ Medical Decision & Procedures ER Provider Diagnostic Interpretation: Radiology results as stated below per my review and radiologist interpretation: PA CHEST RADIOGRAPH AND UPRIGHT AND SUPINE AP RADIOGRAPHS OF THE ABDOMEN FINDINGS: Lung volumes are at the lower limits of normal. Lungs are clear. Cardiac size is normal. Mediastinal contours are normal. There is no free air. There are cholecystectomy clips. The bowel gas pattern is normal. Pelvic calcifications reflect phleboliths. IMPRESSION: 1. No free air or evidence of bowel obstruction. 2. No acute cardiopulmonary findings. Electronically signed by: Enoc Carson M.D. 12/14/2017 1:02 PM Laboratory Results 12/14/17 10:20 Red Blood Count 3.98, Mean Corpuscular Volume 78.4, Mean Corpuscular Hemoglobin 23.6, Mean Corpuscular Hemoglobin Concent 30.1, Mean Platelet Volume 9.0, Neutrophils (%) (Auto) 65.5, Lymphocytes (%) (Auto) 27.1, Monocytes (%) (Auto) 4.4, Eosinophils (%) (Auto) 2.7, Basophils (%) (Auto) 0.3, Neutrophils # (Auto) 4.60, Lymphocytes # (Auto) 1.90, Monocytes # (Auto) 0.31, Eosinophils # (Auto) 0.19, Basophils # (Auto) 0.02 12/14/17 10:20 Test 12/14/17 10:20 12/14/17 12:05 White Blood Count 7.02 K/uL (4.8-10.8) Red Blood Count 3.98 M/uL (4.2-5.4) Hemoglobin 9.4 g/dL (12.0-16.0) Hematocrit 31.2 % (37-47) Mean Corpuscular Volume 78.4 fL (80-100) Mean Corpuscular Hemoglobin 23.6 pg (25-34) Mean Corpuscular Hemoglobin Concent 30.1 g/dl (32-36) Platelet Count 251 K/uL (130-400) Mean Platelet Volume 9.0 fL (7.4-10.4) Neutrophils (%) (Auto) 65.5 % Lymphocytes (%) (Auto) 27.1 % Monocytes (%) (Auto) 4.4 % Eosinophils (%) (Auto) 2.7 % Basophils (%) (Auto) 0.3 % Neutrophils # (Auto) 4.60 K/uL (1.4-6.5) Lymphocytes # (Auto) 1.90 K/uL (1.2-3.4) Monocytes # (Auto) 0.31 K/uL (0.11-0.59) Eosinophils # (Auto) 0.19 K/uL (0-0.5) Basophils # (Auto) 0.02 K/uL (0-0.2) RDW Standard Deviation 55.1 fL (36.4-46.3) RDW Coefficient of Variation 19.0 % (11.5-14.5) Immature Granulocyte % (Auto) 0.0 % Immature Granulocyte # (Auto) 0.00 K/uL (0.00-0.02) Anion Gap 14.0 mmol/L (3-11) Est Creatinine Clear Calc Drug Dose 77.2 ml/min Estimated GFR () 81.5 Estimated GFR (Non- 70.3 BUN/Creatinine Ratio 8.6 (10-20) Calcium Level 9.0 mg/dl (8.5-10.1) Total Bilirubin 0.4 mg/dl (0.2-1) Direct Bilirubin < 0.1 mg/dl (0-0.2) Aspartate Amino Transf (AST/SGOT) 155 U/L (15-37) Alanine Aminotransferase (ALT/SGPT) 58 U/L (12-78) Alkaline Phosphatase 96 U/L (45-117) Total Protein 7.7 gm/dl (6.4-8.2) Albumin 3.5 gm/dl (3.4-5.0) Lipase 246 U/L (73-393) Urine Color ORANGE Urine Appearance CLOUDY (CLEAR) Urine pH 5.0 (4.5-7.5) Urine Specific Mineral 1.021 (1.000-1.030) Urine Protein 1+ (NEG) Urine Glucose (UA) NEG (NEG) Urine Ketones NEG (NEG) Urine Occult Blood 3+ (NEG) Urine Nitrite NEG (NEG) Urine Bilirubin NEG (NEG) Urine Urobilinogen NEG (NEG) Urine Leukocyte Esterase TRACE (NEG) Urine WBC (Auto) 5-10 /hpf (0-5) Urine RBC (Auto) >30 /hpf (0-4) Urine Hyaline Casts (Auto) 5-10 /lpf (0-5) Urine Epithelial Cells (Auto) >30 /lpf (0-5) Urine Bacteria (Auto) NEG (NEG) Urine Test NEG (NEG) Laboratory results reviewed by me Medications Administered Medications (Trade) Dose Ordered Sig/Jens Route Start Time Stop Time Status Last Admin Dose Admin Sodium Chloride 1,000 ml @ 999 mls/hr Q1H1M STAT IV 12/14/17 10:03 12/14/17 11:03 DC 12/14/17 10:23 999 MLS/HR ED Course 0955: The patient was evaluated in room B10. A complete history and physical exam was performed. 1003: Ordered Sodium Chloride 1000 ml @ 999 mls/hr IV. 1208: I reassessed, on repeat abdominal exam no pain on palpation of the abdomen. updated the patient on his test results. The patient is agreeable with the treatment plan. 1312: Vital signs stable. Serial abdominal exams show no pain on palpation of the abdomen. Labs and imaging within normal limits. Hemoglobin at baseline. Discussed with Dr. Rosen. He states the patient was had colonoscopy done 2 days ago and given her hemoglobin stable can be discharged safely home.DISCHARGE - Plan of care discussed with patient and questions answered. The patient was given both verbal and printed discharge instructions. The patient verbalized understanding and ability to comply. The patient is to seek outpatient follow up as noted in the discharge instructions. The patient verbalized understanding and ability to comply. The patient is discharged in stable condition. The patient was instructed to return for worsening symptoms. Medical Decision Vital signs stable. Serial abdominal exams show no pain on palpation of the abdomen. Labs and imaging within normal limits. Hemoglobin at baseline. Discussed with Dr. Rosen. He states the patient was had colonoscopy done 2 days ago and given her hemoglobin stable can be discharged safely home.DISCHARGE - Plan of care discussed with patient and questions answered. The patient was given both verbal and printed discharge instructions. The patient verbalized understanding and ability to comply. The patient is to seek outpatient follow up as noted in the discharge instructions. The patient verbalized understanding and ability to comply. The patient is discharged in stable condition. The patient was instructed to return for worsening symptoms. Medication Reconcilliation Current Medication List: was personally reviewed by me Blood Pressure Screening Patient's blood pressure: Normal blood pressure Blood pressure disposition: Did not require urgent referral Consults Time Called: 1305 Consulting Physician: [facility] Returned Call: [phone] Rosen. He states the patient was had colonoscopy done 2 days ago and given her hemoglobin stable can be discharged safely home. Impression Primary Impression: GI bleed Scribe Attestation The scribe's documentation has been prepared under my direction and personally reviewed by me in its entirety. I confirm that the note above accurately reflects all work, treatment, procedures, and medical decision making performed by me. The chart was completed utilizing [employer] Speech voice recognition software. Grammatical errors, random word insertions, pronoun errors, and incomplete sentences are an occasional consequence of this system due to software limitations, ambient noise, and hardware issues. Any formal questions or concerns about the content, text, or information contained within the body of this dictation should be directly addressed to the physician for clarification. Departure Information Dispostion Home / Self-Care Referrals Best Aguirre M.D. (PCP) Forms HOME CARE DOCUMENTATION FORM, IMPORTANT VISIT INFORMATION, WORK / SCHOOL INSTRUCTIONS Patient Instructions ED Hematochezia Stable, My [facility] Problem Qualifiers Primary Impression: GI bleed GI bleed type/associated pathology: unspecified gastrointestinal hemorrhage type Qualified Codes: K92.2 - Gastrointestinal hemorrhage, unspecified
[2017-12-14 13:30] VITALS: BP 139/80; PULSE 87; O2SAT 96
== END 2017-12-14 13:35 | disposition home or self-care (01) ==
LOC: C.EDB 09:56
DX: K92.2 Gastrointestinal hemorrhage, unspecified (principal); K58.9 Irritable bowel syndrome, unspecified; Z83.3 Family history of diabetes mellitus; Z82.49 Family history of ischemic heart disease and other diseases of the circulatory system; Z88.0 Allergy status to penicillin

== ENCOUNTER → 2017-12-21 | Outpatient (CLI) | payer OTHER ==
[~2017-12-21] MED LIST changes: +ASCO250C3 PO
[2017-12-21 10:58] LABS: HEMATOCRIT 28.4 % (37-47); HEMOGLOBIN 8.4 g/dL (12.0-16.0); MEAN CELL VOLUME 78.2 fL (80-100); MEAN CORPUSCULAR HEMOGLOBIN 23.1 pg (25-34); MEAN CORPUSCULAR HGB CONC 29.6 g/dl (32-36); MEAN PLATELET VOLUME 9.7 fL (7.4-10.4); PLATELET COUNT 304 K/uL (130-400); RED CELL DISTRIBUTION WIDTH CV 18.3 % (11.5-14.5); WHITE BLOOD COUNT 9.68 K/uL (4.8-10.8)
[2017-12-21 11:15] LABS: BASO % 0.2 %; BASO ABS # 0.02 K/uL (0-0.2); EOS ABS # 0.29 K/uL (0-0.5); IG# 0.03 K/uL (0.00-0.02); LYMPH % 30.9 %; LYMPH ABS # 2.99 K/uL (1.2-3.4); MONO % 3.5 %; MONO ABS # 0.34 K/uL (0.11-0.59); NEUT % 62.1 %; NEUT ABS # 6.01 K/uL (1.4-6.5)
== END | disposition home or self-care (01) ==
LOC: C.LABBC 08:45
PROVIDERS: ATTEND Internal Medicine
DX: D50.0 Iron deficiency anemia secondary to blood loss (chronic) (principal)

== ENCOUNTER → 2018-01-02 | Day surgery (SDC) | payer OTHER ==
[2017-12-26 16:57] VITALS: Ht 154.9 cm; Wt 100.0 kg
[~2018-01-02] VITALS: Ht 154.9 cm; Wt 100.0 kg
[~2018-01-02] MED LIST changes: +FENTANYL CITRATE INJ 50 MCG/1 ML 2 ML VIAL ONE; -IRONCAP PO; +PROPOFOL IV EMULSION 10 MG/ML 20 ML VIAL IV ONE; +SODIUM CHLORIDE 0.9% 500ML 500 ML IV ONE
--- NOTE | 2018-01-02 10:46 | Endo History and Physical ---
History & Physical Date of Service: Jan 02, 2018. Chief Complaint: Anemia Referring Physician: Best Aguirre History of Present Illness 52 yo CF who presents for EGD secondary to Iron Deficiency anemia. Past Medical History Asthma, Gastrointestinal Disorder, Reflux, High Cholesterol, Sleep Apnea, Liver Disease Past Surgical History Hx Cardiac Surgery: No Hx Internal Defibrillator: No Hx Pacemaker: No Hx Abdominal Surgery: Yes (JANINA) Hx Post-Op Nausea and Vomiting: Yes Hx Cancer Surgery: No Hx Thoracic Surgery: No Hx Orthopedic: No Hx Urinary Tract Surgery: No Social History Smoking Status: Never Smoker Hx Substance Use: No Hx Alcohol Use: Yes (RARELY) Allergies Coded Allergies: Latex (Unverified Allergy, Severe, rash, 12/26/17) Ondansetron (Unverified Allergy, Unknown, nausea, 12/26/17) Penicillins (Verified Allergy, Unknown, HIVES, 12/26/17) Current Medications Reported Home Medications Medications Dose Route/Sig Max Daily Dose Days Date Category Dose Instructions Zyrtec (Cetirizine HCl) 10 Mg Tab 10 Mg PO QAM 11/06/17 Reported Vitamin E 400 Iu (Vitamin E) 400 Unit Cap 400 Inter.unit PO QAM 11/06/17 Reported Ferrotrin (Iron W/ B12-Vit C-Fa-Ifc) 1 Cap Cap 1 Cap PO HS 11/06/17 Reported Levsin (Hyoscyamine Sulfate) 0.125 Mg Tab 0.125 Mg PO DIRECTED PRN 11/06/17 Reported Calcium + D (Calcium Carbonate-Vitamin D) 1 Tab Tab 1 Tab PO BID 11/06/17 Reported Lipitor (Atorvastatin Calcium) 20 Mg Tab 20 Mg PO QAM 11/06/17 Reported Junel Fe 09/29 (Norethin Acet & Estrad-Fe) 1 Tab Tab 1 Tab PO DAILY 10/24/17 Reported Cholestyramine 4 Gm/Dose Pow 1 Dose PO QAM 10/24/17 Reported 1 scoop mix in liquid and drink bid Glucophage Er (Metformin HCl) 500 Mg Tab 1,000 Mg PO QPM 06/12/17 Reported Citalopram Hydrobromide (Citalopram) 40 Mg Tab 40 Mg PO QAM 10/05/14 Reported Multivitamin (Multivitamins) Tab 1 Tablet PO QAM 02/27/09 Reported Vital Signs Weight (Kilograms): 100 Height (Feet): 5 Height (Inches): 1 Physical Exam General Appearance: WD/WN, no apparent distress Respiratory/Chest: Auscultation: breath sounds normal Cardiovascular: Heart Auscultation: RRR Abdomen: Bowel Sounds: normal Inspection & Palpation: soft, non-distended, no tenderness, guarding & rebound Assessment and Plan Assessment: 52 yo CF who presents for EGD secondary to Iron Deficiency anemia. Plan: Proceed with EGD
[2018-01-02 11:02] VITALS: TEMP 37.3
--- NOTE | 2018-01-02 11:25 | Discharge Instructions ---
Endoscopy Patient Instructions Date / Procedure(s) Performed Jan 02, 2018. Colonoscopy Allergy Information Coded Allergies: Latex (Verified Allergy, Severe, rash, 01/02/18) Penicillins (Verified Allergy, Unknown, HIVES, 12/26/17) Ondansetron (Verified Adverse Reaction, Unknown, nausea, 01/02/18) Discharge Date / Findings Jan 02, 2018. Duodenal biopsies Gastric antrum biopsies Hiatal hernia Medication Instructions OK to resume all medications today as prescribed Reported Home Medications Medications Dose Route/Sig Max Daily Dose Days Date Category Dose Instructions Vitamin C (Ascorbic Acid) 250 Mg Chw 1 Tab PO DAILY 01/02/18 Reported Zyrtec (Cetirizine HCl) 10 Mg Tab 10 Mg PO QAM 11/06/17 Reported Vitamin E 400 Iu (Vitamin E) 400 Unit Cap 400 Inter.unit PO QAM 11/06/17 Reported Levsin (Hyoscyamine Sulfate) 0.125 Mg Tab 0.125 Mg PO DIRECTED PRN 11/06/17 Reported Calcium + D (Calcium Carbonate-Vitamin D) 1 Tab Tab 1 Tab PO BID 11/06/17 Reported Lipitor (Atorvastatin Calcium) 20 Mg Tab 20 Mg PO QAM 11/06/17 Reported Junel Fe 09/29 (Norethin Acet & Estrad-Fe) 1 Tab Tab 1 Tab PO DAILY 10/24/17 Reported Cholestyramine 4 Gm/Dose Pow 1 Dose PO QAM 10/24/17 Reported 1 scoop mix in liquid and drink bid Glucophage Er (Metformin HCl) 500 Mg Tab 1,000 Mg PO QPM 06/12/17 Reported Citalopram Hydrobromide (Citalopram) 40 Mg Tab 40 Mg PO QAM 10/05/14 Reported Multivitamin (Multivitamins) Tab 1 Tablet PO QAM 02/27/09 Reported Provider Instructions Activity Restrictions - No exercising or heavy lifting for 24 hours. - Do not drink alcohol the day of the procedure. - Do not drive a car or operate machinery until the day after the procedure. - Do not make any important decisions or sign important papers in 24 hours after the procedure. Following Day: - Return to full activity which may include returning to work/school. Diet Start your diet with liquids and light foods (jello, soup, juice, toast). Then eat your usual diet if not nauseated. Treatment For Common After Affects For mild abdominal pain, bloating, or excessive gas: - Rest - Eat lightly - Lie on right side Follow-Up Information Follow-up with DR. ANGEL CRANE as scheduled Anesthesia Information What You Should Know You have had a procedure that required some medicine to reduce anxiety and discomfort. This treatment is called moderate sedation. After receiving the treatment, you may be sleepy, but you will be able to breathe on your own. The effects of the treatment may last for several hours. Follow these instructions along with Activity/Diet recommendations noted above: * Do NOT do anything where dizziness or clumsiness would be dangerous. * Rest quietly at home today, then you can be up and about tomorrow. * Have a responsible person stay with you the rest of today. * You may have had an I.V. today. If so, you may take the dressing off later today. Recommendations Call your doctor if: * Trouble breathing * Continuous vomiting for more than 24 hours * Temperature above 101 degrees * Severe abdominal pain or bloating * Pain not relieved by pain medicine ordered * There is increased drainage or redness from any incision * A large amount of rectal bleeding greater than 2-3 tablespoons. (If you had a polyp/s removed or have hemorrhoids, a small amount of blood - from the rectum is to be expected.) * You have any unanswered questions or concerns. IN THE EVENT OF A SERIOUS EMERGENCY, GO TO THE NEAREST EMERGENCY ROOM Your discharge instructions were prepared by provider José Luis Rosen. Patient Instructions Signature Page Adilia Snyder Patient (or Guardian) Signature/Date: I have read and understand the instructions given to me by my caregivers. Caregiver/RN/Doctor Signature/Date: The above-named patient and/or guardian has received patient instructions on this date. + Original Patient Signature Page (only) stays with chart. Please make copy for patient.
[2018-01-02 12:02] VITALS: BP 122/80; PULSE 100; O2SAT 95
--- NOTE | 2018-01-02 13:07 | Anesthesiology Progress Note ---
Anesthesia Post Op Note Date & Time Jan 02, 2018 at 13:07 Vital Signs Pain Intensity: 0 Vital Signs Past 12 Hours Date Time Temp Pulse Resp B/P (MAP) Pulse Ox O2 Delivery O2 Flow Rate FiO2 01/02/18 12:02 100 20 122/80 (94) 95 Room Air 01/02/18 11:43 98 20 120/83 (95) 95 Room Air 01/02/18 11:28 102 20 100/62 (75) 94 Room Air 01/02/18 11:02 37.3 100 20 173/87 (115) 97 Room Air Notes Mental Status: alert / awake / arousable, participated in evaluation Pt Amnestic to Procedure: Yes Nausea / Vomiting: adequately controlled Pain: adequately controlled Airway Patency, RR, SpO2: stable & adequate BP & HR: stable & adequate Hydration State: stable & adequate Anesthetic Complications: no major complications apparent
--- NOTE | 2018-01-03 11:34 | GI REPORT ---
Patient Name: Adilia Snyder Procedure Date: 01/02/2018 11:06 AM Date of : 1965 Admit Type: Outpatient Age: 52 Gender: Female Attending MD: José Luis Rosen DO Procedure: Upper GI endoscopy Providers: José Luis Rosen DO Referring MD: Best Aguirre Indications: Iron deficiency anemia Medicines: Monitored Anesthesia Care Complications: No immediate complications. Estimated Blood Loss: Estimated blood loss: none. Procedure: Pre-Anesthesia Assessment: - Prior to the procedure, a History and Physical was performed, and patient medications and allergies were reviewed. The patient's tolerance of previous anesthesia was also reviewed. The risks and benefits of the procedure and the sedation options and risks were discussed with the patient. All questions were answered, and informed consent was obtained. Prior Anticoagulants: The patient has taken no previous anticoagulant or antiplatelet agents. ASA Grade Assessment: III - A patient with severe systemic disease. After reviewing the risks and benefits, the patient was deemed in satisfactory condition to undergo the procedure. After obtaining informed consent, the endoscope was passed under direct vision. Throughout the procedure, the patient's blood pressure, pulse, and oxygen saturations were monitored continuously. The scope was introduced through the mouth, and advanced to the second part of duodenum. The upper GI endoscopy was accomplished without difficulty. The patient tolerated the procedure well. Findings: The esophagus was normal. A small hiatal hernia was present. Biopsies were taken with a cold forceps in the gastric antrum for Helicobacter pylori testing. The examined duodenum was normal. Biopsies for histology were taken with a cold forceps for evaluation of celiac disease. Impression: - Normal esophagus. - Small hiatal hernia. - Normal examined duodenum. Biopsied. - Biopsies were taken with a cold forceps for Helicobacter pylori testing. Recommendation: - Resume previous diet. - Continue present medications. - Await pathology results. - Return to primary care physician as previously scheduled. José Luis Rosen DO 01/02/2018 5:21:11 PM This report has been signed electronically. Note Initiated On: 01/02/2018 11:06 AM Number of Addenda: 0 I attest to the content of the Intraoperative Record and orders documented therein, exceptions below {[id number]}
== END | disposition home or self-care (01) ==
LOC: C.GI 10:25
PROVIDERS: ATTEND Internal Medicine
DX: D50.9 Iron deficiency anemia, unspecified (principal); K44.9 Diaphragmatic hernia without obstruction or gangrene; J45.909 Unspecified asthma, uncomplicated; G47.33 Obstructive sleep apnea (adult) (pediatric); E11.22 Type 2 diabetes mellitus with diabetic chronic kidney disease; Z91.040 Latex allergy status; Z88.0 Allergy status to penicillin; Z79.899 Other long term (current) drug therapy; N18.9 Chronic kidney disease, unspecified

== ENCOUNTER → 2018-01-24 | Outpatient (CLI) | payer OTHER ==
[~2018-01-24] MED LIST changes: -FENTANYL CITRATE INJ 50 MCG/1 ML 2 ML VIAL ONE; -PROPOFOL IV EMULSION 10 MG/ML 20 ML VIAL IV ONE; -SODIUM CHLORIDE 0.9% 500ML 500 ML IV ONE
--- NOTE | 2018-01-24 14:21 | DIAGNOSTIC IMAGING REPORT ---
GI BLEEDING SCAN CLINICAL HISTORY: IRON DEFICIENCY,GI BLEEDING ETIOLOGY TECHNIQUE: Dynamic abdominal scanning was performed for total of 60 minutes following the intravenous administration of 24.7 mCi of technetium 99 M ultra tag. COMPARISON STUDY: Abdomen and pelvis CT 10/24/2017. FINDINGS: No abnormal radiotracer uptake within the expected location of the bowel to suggest a site of active GI bleed. IMPRESSION: No radiographic evidence for active GI bleed Electronically signed by: Dakotah Malagon M.D. 01/24/2018 2:19 PM Dictated Date/Time: 01/24/2018 2:16 PM
== END | disposition home or self-care (01) ==
LOC: C.NUCL 12:09
PROVIDERS: ATTEND Internal Medicine Hematology & Oncology
DX: D50.0 Iron deficiency anemia secondary to blood loss (chronic) (principal)

== ENCOUNTER → 2018-04-11 | Outpatient (CLI) | payer OTHER ==
[~2018-04-11] MED LIST changes: +GADAVIST IV PRN
--- NOTE | 2018-04-11 11:15 | DIAGNOSTIC IMAGING REPORT ---
ABDOMINAL MRI WITH AND WITHOUT INTRAVENOUS CONTRAST HISTORY: PANCREATIC LESION* PANCREATIC PROTOCOL* TECHNIQUE: Multiplanar multisequence MRI of the abdomen was performed both before and after the intravenous administration of 10 cc of Gadavist to evaluate the pancreas. COMPARISON STUDY: Abdomen and pelvis CT 10/24/2017. Abdominal ultrasound 10/24/2017. FINDINGS: The lung bases are clear. The liver, spleen, adrenal glands, and left kidney are unremarkable. A stable 6 mm cyst within the right kidney. No retroperitoneal lymphadenopathy. Normal caliber abdominal aorta. Prior cholecystectomy. Common bile duct measures up to 7 mm. This remains unchanged and is likely due to the patient's postcholecystectomy state. However, there is a tight stricture at the distal common bile duct just beyond the common hepatic/cystic duct confluence. This is best seen on image 67 of 112 on the MRCP sequences. No filling defects within the common bile duct. The main pancreatic duct is normal in course and caliber. There is confirmation of the 1 cm cyst within the pancreatic neck. There appears to be an adjoining side branch with the main pancreatic duct along the left side of the lesion. Therefore, this likely represents a side branch intraductal papillary mucinous neoplasm. IMPRESSION: 1. A 1 cm cystic neoplasm within the pancreatic neck. 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 One year follow-up is recommended to ensure stability. 2. There is a tight stricture at the distal common bile duct just beyond the common hepatic/cystic duct confluence. There is mild dilatation of the proximal bile ducts. This could be due to a benign or malignant stricture. ERCP is recommended for further evaluation. Electronically signed by: Dakotah Malagon M.D. 04/11/2018 11:14 AM Dictated Date/Time: 04/11/2018 10:55 AM
[2018-04-11 12:22] LABS: BLOOD UREA NITROGEN 8 mg/dl (7-18); CREATININE 0.68 mg/dl (0.60-1.20)
== END | disposition home or self-care (01) ==
LOC: C.MRI 09:43
PROVIDERS: ATTEND Internal Medicine
DX: K86.9 Disease of pancreas, unspecified (principal)